=== PATIENT | female | born 1965 | race Caucasian/White ===

== ENCOUNTER 2022-01-29 05:54 | Observation (INO) ==
--- NOTE | 2022-01-19 11:06 | Anesthesiology Consultation ---
Date of Service January 19, 2022 Assessment & Plan (1) Encounter for pre-operative examination: Chart Review Chart Review: Acceptable Risk for Surgery History Surgery Operation Date: 01/29/22 07:30 Proposed Procedures p Bilateral Medial Thigh Lift - Isaura Mejias MD Height/Weight Height: 5 ft 3 in Weight: 66.678 kg Allergies Allergy/AdvReac Type Severity Reaction Status Date / Time adhesive tape Allergy Intermediate "rips skin Verified 01/18/22 12:33 off" Sulfa (Sulfonamide Allergy Intermediate itchy Verified 01/18/22 12:33 Antibiotics) fentanyl AdvReac Severe severe Verified 01/18/22 13:12 vomiting morphine AdvReac Severe severe Verified 01/18/22 13:12 vomiting aspirin AdvReac Mild light Verified 01/18/22 13:12 headed, faints Medications Home Medications Medication Instructions Recorded Confirmed Last Taken baclofen 10 mg tablet 10 mg PO HS 01/10/22 01/18/22 Unknown metoprolol tartrate 50 mg tablet 25 mg PO BID 01/10/22 01/18/22 Unknown (Lopressor) oxycodone-acetaminophen 5 mg-325 1 tab PO Q4H PRN pain 3 days #18 01/10/22 01/18/22 Unknown mg tablet (Percocet) tabs Past Medical History Medical History Hypertension Migraine Past Family History Family History Other No family history of adverse response to anesthesia Past Surgical History Surgical History History of cholecystectomy History of esophagogastroduodenoscopy (EGD) History of hysterectomy with unilateral oophorectomy left removed History of right knee surgery History of Jethro-en-Y gastric bypass History of surgery scar revision for panniculectomy History of tooth extraction History of wisdom tooth extraction Nausea and vomiting after administration of anesthetic agent Status post panniculectomy Social History Smoking Status: Never smoker Do You Dip or Chew Tobacco: No Hx Alcohol Use: No Hx Substance Use: No substance use type: does not use Testing Laboratory Results Laboratory Tests 01/17/22 01/17/22 18:49 18:49 Hgb 13.3 Plt Count 325 Potassium 3.9 Creatinine 0.59 L Electrocardiogram Date: 01/17/22 Findings: + NSR @ (09)
[2022-01-29] MEDS ORDERED: LR 15ML/HR IV SCH (06:00)
[2022-01-29] MEDS ORDERED: MIDAZOLAM HCL 1 MG/ML 2ML VIAL ONE (06:14)
[2022-01-29] MEDS ORDERED: LIDOCAINE 2% MPF LOCAL 5 ML VIAL INFIL ONE (06:21)
[2022-01-29] MEDS ORDERED: LIDOCAINE 2% 20 MG/ML 5 ML SYR IV ONE (06:21)
[2022-01-29] MEDS ORDERED: PROPOFOL IV EMULSION 10 MG/ML 20 ML VIAL IV ONE ×2 (06:22→10:23)
[2022-01-29] MEDS ORDERED: KETAMINE 50 MG/5 ML SYRINGE ONE (06:26)
[2022-01-29] MEDS ORDERED: PROPOFOL IV EMULSION 10 MG/ML 100 ML VIAL IV ONE (06:38)
[2022-01-29] MEDS ORDERED: ceFAZolin 1000MG 1,000 MG/7.5 ML SYR IV ONE (06:49)
[2022-01-29] MEDS ORDERED: PROMETHAZINE HCL 6.25 MG in SODIUM CHLORIDE 0.9% 50 ML IV PRN (06:56)
[2022-01-29] MEDS ORDERED: SCOPOLAMINE 1 MG TDSY TD ONE ×2 (06:56→07:09)
[2022-01-29] MEDS ORDERED: ONDANSETRON INJ 2 MG/ML 2 ML VIAL IV PRN ×2 (06:56→14:26)
[2022-01-29] MEDS ORDERED: ePHEDrine sulfate 50 MG/ML AMP IV PRN (06:56)
[2022-01-29] MEDS ORDERED: ATROPINE SULFATE 0.1 MG/ML 10ML SYR IV PRN (06:56)
[2022-01-29] MEDS ORDERED: ROCURONIUM BROMIDE 10 MG/ML 5 ML VIAL IV ONE (06:59)
[2022-01-29] MEDS ORDERED: fentaNYL citrate 100 MCG/2 ML VIAL ONE (07:00)
--- NOTE | 2022-01-29 07:03 | History & Physical Bridge Note ---
Date of Service January 29, 2022 History & Physical Bridge Note I have examined the patient, reviewed the History & Physical and in the interval since the performance of the History & Physical I have noted the following changes of clinical significance: recent Echo, improved from 2017. Started on amlodipine. Cleared by cardiology to proceed.
[2022-01-29] MEDS ORDERED: EPINEPHrine INJ 1 MG/ML AMP ONE (07:13)
[2022-01-29] MEDS ORDERED: LIDOCAINE 1% LOCAL 20 ML VIAL ONE (07:14)
[2022-01-29] MEDS ORDERED: LIDOCAINE 1%/EPINEPHRINE 1:100,000 50 ML VIAL ONE (07:14)
[2022-01-29] MEDS ORDERED: BUPIVACAINE 0.25% 30 ML VIAL ONE (07:14)
[2022-01-29] MEDS ORDERED: ONDANSETRON INJ 2 MG/ML 2 ML VIAL ONE (07:43)
[2022-01-29] MEDS ORDERED: DEXAMETHASONE SOD INJ 4 MG/ML VIAL ONE (07:43)
[2022-01-29] MEDS ORDERED: ePHEDrine sulfate 50 MG/ML SYR ONE (07:53)
[2022-01-29] MEDS ORDERED: METOCLOPRAMIDE HCL INJ 5 MG/ML 2 ML VIAL ONE (08:27)
[2022-01-29] MEDS ORDERED: GLYCOPYRROLATE 0.2 MG/ML VIAL ONE (08:27)
[2022-01-29] MEDS ORDERED: NEOSTIGMINE METHYLSULFATE 1 MG/ML 10ML VIAL ONE (08:27)
[2022-01-29] MEDS ORDERED: ACETAMINOPHEN 1000 MG/100 ML IV IV ONE (10:17)
[2022-01-29] MEDS ORDERED: HYDROmorphone INJ 1 MG/ML SYRINGE ONE (10:21)
[2022-01-29] MEDS ORDERED: TISSEEL FIBRIN SEALANT 4ML TOP ONE (10:57)
--- NOTE | 2022-01-29 11:12 | Post Operative Brief Note ---
PG Immediate Post Op with CF Date of Surgery January 29, 2022 Pre & Post Diagnosis Operation Date: 01/29/22 07:30 Pre-Op Diagnosis: Excess Skin of Thigh, Intertrigo Post-Op Diagnosis: Excess Skin of Thigh, Intertrigo I identified the patient and participated in the time-out.: Yes Procedure Operation Date: 01/29/22 07:30 Actual Procedures p Bilateral Medial Thigh Lift - Isaura Mejias MD Surgeon Isuara Mejias MD Tv Technician Joann Bañuelos PA-C Estimated Blood Loss 25 Findings Consistent with Post-Op Diagnosis Specimens Specimen Description: Permanent Specimen A: Left medial thigh B: Right medial thigh Drains Durand Catheter and Kam-Boggs Drain (15Fr Round Bilateral thigh)
[2022-01-29] MEDS: HYDROmorphone INJ 1 MG/ML SYRINGE IV PRN ×2 (12:12→12:18)
--- NOTE | 2022-01-29 12:39 | Anesthesiology Progress Note ---
Date of Service January 29, 2022 Anesthesia Post Procedure Vital Signs Vital Signs: Temp Pulse Pulse Resp BP BP Pulse Ox 01/29/22 12:30 89 14 164/89 H 99 01/29/22 12:20 93 H 13 156/91 H 99 01/29/22 12:10 98 H 13 165/90 H 95 01/29/22 12:00 96 H 13 157/101 H 95 01/29/22 11:50 101 H 14 166/99 H 98 01/29/22 11:40 98.4 F 103 H 15 184/103 H 95 01/29/22 06:25 98.2 F 69 20 180/107 H 100 O2 Del Method O2 Flow Rate 01/29/22 12:30 Nasal Cannula 2 01/29/22 12:20 Nasal Cannula 2 01/29/22 12:10 Nasal Cannula 2 01/29/22 12:00 Oxymask 10 01/29/22 11:50 Oxymask 10 01/29/22 11:40 Oxymask 10 01/29/22 06:25 Room Air Pain Intensity Bilateral Thigh: Pain Intensity: 2 Transfer of Care Handoff Completed per policy Notes Mental Status: alert / awake / arousable and participated in evaluation Patient Amnestic to Procedure: Yes Nausea / Vomiting: adequately controlled Pain: adequately controlled Airway Patency, RR, SpO2: stable & adequate BP & HR: stable & adequate Hydration State: stable & adequate Anesthetic Complications: no major complications apparent and Pt Satisfied with anesthetic care
[2022-01-29] MEDS ORDERED: oxyCODONE/ACETAMINOPHEN 5mg/325mg TAB PO PRN ×2 (14:26)
[2022-01-29] MEDS ORDERED: diphenhydrAMINE Capsule 25 MG CAP PO PRN (14:26)
[2022-01-29] MEDS ORDERED: diphenhydrAMINE 50 MG/ML VIAL IV PRN (14:26)
[2022-01-29] MEDS ORDERED: PROMETHAZINE HCL 12.5 MG in SODIUM CHLORIDE 0.9% 50 ML IV PRN (14:26)
[2022-01-29] MEDS ORDERED: LORazepam 0.5 MG TAB PO PRN (14:26)
--- NOTE | 2022-01-29 15:32 | Surgery Progress Note ---
Date of Service January 29, 2022 Assessment & Plan (1) Intertrigo: (2) Excess skin of thigh: Plan: S/P Medial Thigh Lift Patient doing well. D/C onofre in AM, anticipate discharge in AM. Zofran is ordered for nausea. Admission and Anticipated Discharge Date Admission Date: January 29, 2022 Swati Crooks is post-op medial thigh lift. She is resting in bed. She feels well, has good pain control, some nausea. Physical Exam Physical Exam: compression garment in good position. drains with small amount of serosang output Results & Data ([facility]) Vital Signs (Past 12 Hours) Vital Signs Temp Pulse Pulse Resp BP BP Pulse Ox 01/29/22 14:45 96 H 15 163/93 H 97 01/29/22 14:15 36.5 C 67 13 157/89 H 97 01/29/22 13:45 98 H 15 162/92 H 94 01/29/22 13:30 101 H 15 157/92 H 96 01/29/22 13:15 92 H 14 158/88 H 95 01/29/22 13:00 104 H 14 145/78 H 97 01/29/22 12:45 36.2 C L 89 17 167/86 H 97 01/29/22 12:30 89 14 164/89 H 99 01/29/22 12:20 93 H 13 156/91 H 99 01/29/22 12:10 98 H 13 165/90 H 95 01/29/22 12:00 96 H 13 157/101 H 95 01/29/22 11:50 101 H 14 166/99 H 98 01/29/22 11:40 36.9 C 103 H 15 184/103 H 95 01/29/22 06:25 36.8 C 69 20 180/107 H 100 O2 Del Method O2 Flow Rate 01/29/22 14:45 Nasal Cannula 2 01/29/22 14:15 Nasal Cannula 2 01/29/22 13:45 Nasal Cannula 2 01/29/22 13:30 Nasal Cannula 2 01/29/22 13:15 Nasal Cannula 2 01/29/22 13:00 Nasal Cannula 2 01/29/22 12:45 Nasal Cannula 2 01/29/22 12:30 Nasal Cannula 2 01/29/22 12:20 Nasal Cannula 2 01/29/22 12:10 Nasal Cannula 2 01/29/22 12:00 Oxymask 10 01/29/22 11:50 Oxymask 10 01/29/22 11:40 Oxymask 01/29/22 06:25 Room Air PG Care Time/CCT Total # of Minutes Spent Total Time Spent with Patient: Total time spent is greater than 50% in coordination of care (as documented) at patient's floor/unit and/or counseling patient: Coding Level of Care Code None Diagnoses Intertrigo L30.4 Excess skin of thigh L98.7
--- NOTE | 2022-01-29 15:36 | Operative Report ---
PG Post Operative Report Pre & Post Diagnosis Operation Date: 01/29/22 07:30 Pre-Op Diagnosis: Excess Skin of Thigh, Intertrigo Post-Op Diagnosis: Excess Skin of Thigh, Intertrigo I identified the patient and participated in the time-out.: Yes Procedure Operation Date: 01/29/22 07:30 Actual Procedures p Bilateral Medial Thigh Lift - Isaura Mejias MD Surgeon Isaura Mejias MD Soap Worker Joann Bañuelos PA-C Estimated Blood Loss 25 Findings Consistent with Post-Op Diagnosis Specimens Bilateral thigh skin to pathology. Drains [id number] Anesthesia Type General Complications none Indications Status post 85 pound weight loss secondary to gastric bypass, chronic intertrigo of medial thighs Description of Procedure The risks, benefits, alternatives the procedure were explained to the patient agreed and signed consent. She was notified and marked in the preoperative holding area. The planned final location of her incisions were marked in standing position and then the medial and lateral aspects of resection were marked with her in a frog-leg position, placing manual traction on the skin and mobilizing it toward the midline. I planned for vertical as well as horizontal resection. Horizontal resection was also measured and marked. Anteriormost aspect of the incision was marked 4 cm from the vulvar commissure and medial to the femoral triangle. Posteriorly, the incision was marked into the gluteal crease. Markings were symmetric, although there did appear to be some slight asymmetry in lipodystrophy of the right thigh versus the left. Patient was brought to the operating room, placed under general anesthesia without incident. Durand catheter was placed. Surgical site was prepped and draped sterilely. Legs were prepped circumferentially to mid calf and foot pumps were used for DVT prophylaxis. I began with the left thigh. 40 cc of tumescent fluid consisting of lactated Ringer's, 1% lidocaine, epinephrine was injected using an 20-gauge spinal needle in order to infiltrate the tissues and assist in hemostasis. The anterior incision was made first, beginning in the mons pubis using a 15 blade scalpel. Superficial dissection was performed over the mons pubis and groin to preserve lymphatics and venous drainage and then posterior to the abductor tendon, dissection plane was made more deeply. The incision was then carried about two th[address] of the way down the thigh to the mid proximal thigh using 15 blade scalpel. Incision was deepened through dermis and underlying subcutaneous fat until superficial fascial suspension system was encountered and this was incised and dissection was carried in this plane posteriorly using electrocautery. Vessels were ligated using electrocautery. Saphenous vein was preserved. Dissection was carried posteriorly to the extent of my initial markings. At this time, planned excision was marked in a stepwise fashion, beginning inferiorly. The flap was incised and tailor tacked to the anterior incision in multiple locations. Once I was satisfied with the appropriateness of the tension of the incision (i.e. able to be closed without significant laxity or undue tension) surgical marking pen was used to connect the stapled points. 15 blade scalpel was used to incise each of the smaller flaps and electrocautery was used to deepen the incision until the flaps had been resected. At each stapled point, staple was removed, and a superficial fascial 2-0 Vicryl suture was placed. Along the groin, tissue was marked for excision and incised using 15 blade scalpel. Hemostasis was achieved with electrocaut jennifer. 0 Ethibond suture was used to suture the superficial fascial system and deep dermis on the flap side to Colles' fascia to take tension off of the wound closure and ideally prevent labial spread. Tisseel was sprayed in the wound bed prior to closure. The remainder of the superficial fascial system was reapproximated using 2-0 Vicryls along the vertical and horizontal components of the incision. Deep dermis was closed using 2-0 Vicryl deep dermal suture along vertical and horizontal components of the incision. Superficial dermis was reapproximated using 2-0 PDO running Quill suture both along the vertical and horizontal components of the incision 3-0 Monocryl running subcuticular suture was used to reapproximate the cutaneous layer. Dermabond was placed to all incisions. Dry dressings were placed followed by a surgical support garment. An identical procedure was performed on the right side. The procedure was tolerated well. The patient was awakened and transferred to the recovery room in satisfactory condition. Joann Bañuelos PA-C was present and scrubbed throughout the procedure, assisted in retraction, hemostasis, and simultaneous wound closure. I attest to the content of the Intraoperative Record and any orders documented therein. Any exceptions are noted below.
[2022-01-29] MEDS: CHECK SCOPOLAMINE PATCH PLACEMENT SCH ×2 (15:58→23:02)
[2022-01-29] MEDS: ACETAMINOPHEN 325 MG TAB PO PRN (16:03)
[2022-01-29] MEDS: D5W AND 1/2NSS + 20MEQ KCL 20 MEQ/1,000 ML BAG IV SCH (17:19)
[2022-01-29] MEDS: ceFAZolin 2000MG 2,000 MG/15 ML SYR IV SCH ×2 (17:19→22:59)
[2022-01-29] MEDS ORDERED: BACLOFEN 10 MG TAB PO SCH (21:00)
[2022-01-29] MEDS: METOPROLOL TARTRATE 25 MG TAB PO SCH (21:59)
[2022-01-30] MEDS: D5W AND 1/2NSS + 20MEQ KCL 20 MEQ/1,000 ML BAG IV SCH (06:05)
[2022-01-30] MEDS: ACETAMINOPHEN 325 MG TAB PO PRN (08:13)
[2022-01-30] MEDS: CHECK SCOPOLAMINE PATCH PLACEMENT SCH (08:31)
[2022-01-30] MEDS: METOPROLOL TARTRATE 25 MG TAB PO SCH (08:31)
[2022-01-30] MEDS ORDERED: amLODIPine BESYLATE 5 MG TAB PO SCH (09:00)
[2022-01-30] MEDS ORDERED: MULTIVITAMIN TAB PO SCH (09:00)
--- NOTE | 2022-01-30 09:58 | Surgery Progress Note ---
Date of Service January 30, 2022 Assessment & Plan (1) Intertrigo: (2) Excess skin of thigh: Plan s/p Bilateral Medial Thigh Lift. Daksha is doing well. She does continue to have some post-op nausea- this does seem to be improving. Prescription for PRN Zofran sent to patient's pharmacy. She is ok for discharge to home today. We reviewed that compression garment will stay in place until her follow-up appointment tomorrow in our office. ABBY drains to stay in place as well. She is aware that she should empty and record output for each drain separately. She is not allowed to shower. Next appointment is tomorrow in [facility] office at 10AM. She was encouraged to call with any questions or concerns. Admission and Anticipated Discharge Date Admission Date: January 29, 2022 Subjective Daksha is POD #1 s/p Bilateral medial thigh lift. She is sitting comfortably in chair at bedside. She reports that she is feeling well. She does continue to have some post-op nausea. Her pain is controlled with as needed pain medication. She has not been very hungry since surgery, but has been able to eat some bananas, which does settle her stomach. Durand catheter has been removed and she has been able to void on her own without issue. Review of Systems Constitutional: no fever and no chills Respiratory: no cough, no chest congestion and no dyspnea Cardiovascular: no chest pain and no dyspnea Physical Exam Constitutional: WD/WN, vitals as above Respiratory: normal respiratory effort; no respiratory distress and no labored breathing Skin: Compression garment left in place- good position. ABBY drains x [address] with serosang output. Results & Data ([facility]) Vital Signs (Past 12 Hours) Vital Signs Temp Pulse Pulse Resp BP Pulse Ox O2 Del Method 01/30/22 09:45 36.9 C 64 20 175/91 H 98 Room Air 01/30/22 02:59 36.6 C 69 16 132/74 98 Room Air 01/29/22 22:50 36.6 C 79 18 155/80 H 97 Room Air 01/29/22 22:01 37.2 C 64 18 138/83 96 Room Air PG Care Time/CCT Total # of Minutes Spent Total Time Spent with Patient: Total time spent is greater than 50% in coordination of care (as documented) at patient's floor/unit and/or counseling patient: Coding Level of Care Code None Diagnoses Intertrigo L30.4 Excess skin of thigh L98.7
--- NOTE | 2022-01-30 12:38 | Discharge Summary ---
Date of Service January 30, 2022 Admission HPI Per Admitting Provider Please see admission H and P. Admission Exam Per Admitting Provider Please see admission H and P. Principal Diagnosis Intertrigo and Excess skin of thigh Discharge Exam Thigh compression garment left in place- good position. ABBY drains x [address] with serosang output. Constitutional WD/WN, vitals as above Respiratory normal respiratory effort; no respiratory distress and no labored breathing Psychiatric A+Ox3, euthymic affect Discharge Data Allergies Allergy/AdvReac Type Severity Reaction Status Date / Time adhesive tape Allergy Intermediate "rips skin Verified 01/29/22 06:24 off" Sulfa (Sulfonamide Allergy Intermediate itchy Verified 01/29/22 06:24 Antibiotics) fentanyl AdvReac Severe severe Verified 01/29/22 06:24 vomiting morphine AdvReac Severe severe Verified 01/29/22 06:24 vomiting aspirin AdvReac Mild light Verified 01/29/22 06:24 headed, faints Procedures Performed Operation Date: 01/29/22 07:30 Actual Procedures p Bilateral Medial Thigh Lift - Isaura Mejias MD Hospital Course (1) Intertrigo: (2) Excess skin of thigh: Rosemary Crooks is a 56-year-old female with excess skin of her bilateral thighs resulting in intertrigo. She was taken to the OR and underwent bilateral medial thigh lift. 2 ABBY drains were placed intraoperatively. There were no intraoperative complications. She was taken to recover and transferred to med/surg for overnight observation. On POD #1, she was feeling sore and had some post-op nausea, but overall was doing well. She was tolerating a regular diet, voiding on her own and ambulating in her room and in the hinson without issue. On exam, her vital signs were stable, thigh compression garment was left in place. ABBY drains stayed in place at discharge. She was discharged home with instructions to follow-up in the office in 1 day. Total Time Total Time Spent Total Time Spent (In Minutes): 10 Discharge Plan Discharge Items Patient Disposition: Home - Self-Care Reason For Visit: Excess Skin of Thigh, Intertrigo Discharge Diagnosis: Excess Skin of Thigh, Intertrigo Activity: As commented below Non-emergency contact: Surgeon Call non-emergency contact if: you have any medication questions, your pain is not controlled, your temperature is above 101.5, your wound has increased redness and your wound has increased drainage Follow-up/Referrals: Isaura Mejias MD [Physician] - 01/31/22 10:00 am (APPT WITH AGNES AGUILA PA-C) PCP,NO [Primary Care Provider] - Diet: Regular Addtl Attending Provider Instructions: ACTIVITY RECOMMENDATIONS: __Normal activities __No bending, lifting or straining __No driving __Driving allowed when you are off pain medications __Walking permitted __You should have help at home for ___ days DRESSINGS: __No dressings required __Keep dressings dry/in place until first office visit __Remove dressings ___ and leave dressings off __Apply ice ___ days __Remove dressings and reapply garment __Apply antibiotic ointment (Bacitracin, Neosporin, etc) to wounds 3-4 times/day for 10 days BATHING: _X_Keep dressings dry _X_Sponge bathing permitted, but do NOT get surgical dressings wet. __Showering permitted _X_No swimming, hot tubs or soaking in a tub MEDICATIONS: Resume previous medications unless instructed otherwise by your surgeon. X__Do not use aspirin, Motrin, Advil or Ibuprofen as these may promote bleeding. Please use Tylenol. _X_Prescription(s) provided: Prescription for post-op pain medication provided at last office visit. Please use as prescribed. OTHER INSTRUCTIONS: X__Record drain output 2-3 times per day SPECIAL CARE INSTRUCTIONS: * It is normal to have a mild fever after surgery. If your temperature is higher than 101.5 degrees F, please call the office at [phone]. * Constipation is a typical side effect of pain medication. An [id number] stool softener will help relieve this. * Leaking around surgical drains may occur and should not cause concern. Sometimes these drains become clogged. If this happens, remove the bulb and milk the clot out of the tube, then replace the bulb. * Drainage from wounds after liposuction is normal and should be expected. Garments will become soiled. You should protect furniture and bedding. This drainage should mostly subside within 2-3 days. Leave garments in place unless instructed to remove them. * If you have unusual drainage from a wound or are concerned you have an inf ection or have any questions or concerns, please call the office at [phone]. FOLLOW UP VISIT: If not already scheduled, please call the office, , when you return home after surgery to schedule an appointment to be seen in __1_ day. Pending Studies at Discharge: No Stand-Alone Forms: [facility] [employer], Opioid Pain Management, Smoking Cessation Medications and DC Order Prescriptions: New ondansetron HCl 4 mg tablet 4 mg PO Q6H PRN (Reason: nausea and vomiting) 3 Days Qty: 12 0RF Continued metoprolol tartrate [Lopressor] 50 mg tablet 25 mg PO BID baclofen 10 mg tablet 10 mg PO HS oxycodone-acetaminophen [Percocet] 5-325 mg tablet 1 tab PO Q4H PRN (Reason: pain) 3 Days Qty: 18 0RF Rx Instructions: Initial therapy. Pt has not started amlodipine 5 mg Tablet 5 mg PO DAILY Discharge Orders: Discharge Order (Routine); Ordered 01/30/22 Ordered By: Meredith Miller Admission Data Admit Date/Time: 01/29/22 11:41 Attending Provider: Isaura Mejias Admit Provider: Isaura Mejias Primary Care Provider: PCP,NO Other Interventions: Discharge Summary Assessment (RN) Last Done: 01/30/22 09:35 Supervising Physician Co-Signing Physician Notes Dr. Isaura Mejias Coding Level of Care Code 13474 OBS Care - Discharge Diagnoses Intertrigo L30.4 Excess skin of thigh L98.7
== END 2022-01-30 10:52 | disposition home or self-care (01) ==
LOC: EDACCT# → PACUINP 05:54 → ASU 05:54 → 3E 15:33